=== PATIENT | male | born 1970 | race African-American/Black ===

== ENCOUNTER 2024-09-17 13:44 | Inpatient (IN) | payer OTHER ==
[~2024-09-17 13:44] MED LIST: Iopamidol-370 76% 500 ML MDV (1 ML CHARGE) ONE
[2024-09-17] MEDS ORDERED: Aspirin 325 MG TAB ONE (14:06)
[2024-09-17 14:19] LABS: #Basophils 0.06 10x3/uL (0.0-0.2); %Eosinophils 5.8 % (0.0-10.0); %Lymphocytes 22.4 % (21.0-51.0); %Monocytes 9.5 % (0.0-10.0); Hematocrit 34.7 % (42.0-52.0); Hemoglobin 11.4 g/dL (14.0-18.0); Mean Corpuscular HGB CONC 32.9 g/dL (32.0-36.0); Mean Corpuscular Hemoglobin 29.4 pg (27.0-31.0); Mean Corpuscular Volume 89.4 fL (78.0-98.0); Mean Platelet Volume 11.1 fL (7.4-10.4); Platelet Count 160 10x3/uL (130-400); RBC Distribution Width 13.6 % (11.5-14.5); Red Blood Cell (RBC) Count 3.88 mill/uL (4.70-6.10)
[2024-09-17 14:31] LABS: Prothrombin Time 13.3 sec (12.0-14.7)
[2024-09-17 14:32] LABS: PTT 29.2 sec (22.9-36.1)
[2024-09-17 14:38] LABS: ALT (SGPT) 18 U/L (Less than 45); AST (SGOT) 346 U/L (11-34); Albumin 3.5 g/dL (3.1-4.5); Alkaline Phosphatase 67 U/L (40-110); Anion Gap 14 mmol/L (10-20); BUN (Urea Nitrogen) 15 mg/dL (8.4-25.7); Bilirubin, Total 0.3 mg/dL (0.3-1.2); Calc. Creatinine Clearance 0 mL/min (70-130); Calcium 8.5 mg/dL (7.8-10.44); Carbon Dioxide 27 mmol/L (22-29); Chloride 101 mmol/L (98-107); Estimated GFR 68; Globulin 3.7 g/dL (2.4-3.5); Glucose 275 mg/dL (70-105); Potassium 3.7 mmol/L (3.5-5.1); Protein, Total 7.2 g/dL (6.0-8.3); Sodium 138 mmol/L (136-145)
[2024-09-17 14:41] LABS: Troponin I 0.012 ng/mL (< 0.028)
[2024-09-17] MEDS ORDERED: Ondansetron ODT 4 MG TAB PO PRN (20:09)
[2024-09-17] MEDS ORDERED: Glucagon 1 MG/ML KIT IM PRN (20:09)
[2024-09-17] MEDS ORDERED: Dextrose 50% Abboject 50 ML SYRINGE SLOW IVP PRN (20:09)
[2024-09-17] MEDS ORDERED: Dextrose 5% in Water 1,000 ML IV PRN (20:09)
[2024-09-17] MEDS ORDERED: Famotidine 20 MG TAB PO SCH (21:00)
[2024-09-17] MEDS: Metoprolol Tartrate 100 MG TAB PO SCH (22:12)
[2024-09-17] MEDS: Famotidine 20 MG TAB PO SCH (22:12)
[2024-09-17] MEDS: Insulin Glargine 30 UNITS/0.3 ML VIAL SC SCH (22:12)
[2024-09-17] MEDS: Atorvastatin Calcium 40 MG TAB PO SCH (22:13)
[2024-09-18 01:12] VITALS: BMI 36.5
[2024-09-18 04:20] LABS: #Basophils 0.06 10x3/uL (0.0-0.2); %Basophils 0.9 % (0.0-1.0); %Eosinophils 5.7 % (0.0-10.0); %Lymphocytes 27.9 % (21.0-51.0); %Monocytes 8.4 % (0.0-10.0); Hematocrit 34.3 % (42.0-52.0); Hemoglobin 11.1 g/dL (14.0-18.0); Mean Corpuscular HGB CONC 32.4 g/dL (32.0-36.0); Mean Corpuscular Hemoglobin 29.1 pg (27.0-31.0); Mean Corpuscular Volume 89.8 fL (78.0-98.0); Platelet Count 161 10x3/uL (130-400); RBC Distribution Width 13.3 % (11.5-14.5); Red Blood Cell (RBC) Count 3.82 mill/uL (4.70-6.10)
[2024-09-18 04:31] LABS: Hemoglobin A1c 6.8 % (4.0-6.0)
[2024-09-18 04:40] LABS: ALT (SGPT) 17 U/L (Less than 45); AST (SGOT) 349 U/L (11-34); Albumin 3.5 g/dL (3.1-4.5); Alkaline Phosphatase 62 U/L (40-110); Anion Gap 13 mmol/L (10-20); BUN (Urea Nitrogen) 11 mg/dL (8.4-25.7); Bilirubin, Total 0.5 mg/dL (0.3-1.2); Calc. Creatinine Clearance 110 mL/min (70-130); Calcium 8.7 mg/dL (7.8-10.44); Carbon Dioxide 30 mmol/L (22-29); Chloride 102 mmol/L (98-107); Estimated GFR 84; Globulin 3.8 g/dL (2.4-3.5); Glucose 97 mg/dL (70-105); Potassium 2.9 mmol/L (3.5-5.1); Protein, Total 7.3 g/dL (6.0-8.3); Sodium 142 mmol/L (136-145)
[2024-09-18 04:42] LABS: Cardiac Risk 3.5 (Less than 4.5)
[2024-09-18] MEDS ORDERED: Potassium Chloride 20 MEQ in Premix 1 BAG IVPB SCH (08:00)
[2024-09-18] MEDS: Empagliflozin 25 MG TAB PO SCH (08:54)
[2024-09-18] MEDS: Escitalopram Oxalate 20 mg Tablet PO SCH (08:54)
[2024-09-18] MEDS: Aspirin 81 mg Enteric Coated Tablet PO SCH (08:54)
[2024-09-18] MEDS: Potassium Chloride 20 MEQ TAB PO SCH (09:26)
[2024-09-18] MEDS: Hydrochlorothiazide 25 MG TAB PO SCH (09:26)
[2024-09-18] MEDS: NIFEdipine XL 60 MG ER.TAB PO SCH (09:26)
[2024-09-18] MEDS: Insulin Lispro 100 UNIT/ML 10 ML VIAL SC PRN (13:15)
[2024-09-18] MEDS: Clopidogrel Bisulfate 300 MG TAB PO SCH (13:15)
[2024-09-18 15:42] LABS: Troponin I Less than 0.010 ng/mL (< 0.028)
[2024-09-18] MEDS: Meclizine HCl 25 MG TAB PO PRN (21:51)
[2024-09-19 04:03] LABS: #Basophils 0.04 10x3/uL (0.0-0.2); %Basophils 0.6 % (0.0-1.0); %Eosinophils 4.9 % (0.0-10.0); %Lymphocytes 31.4 % (21.0-51.0); %Monocytes 9.5 % (0.0-10.0); %Neutrophils 53.5 % (42.0-75.0); Hematocrit 35.7 % (42.0-52.0); Hemoglobin 11.5 g/dL (14.0-18.0); Mean Corpuscular HGB CONC 32.2 g/dL (32.0-36.0); Mean Corpuscular Hemoglobin 28.5 pg (27.0-31.0); Mean Corpuscular Volume 88.6 fL (78.0-98.0); Mean Platelet Volume 11.4 fL (7.4-10.4); Platelet Count 166 10x3/uL (130-400); RBC Distribution Width 13.4 % (11.5-14.5); Red Blood Cell (RBC) Count 4.03 mill/uL (4.70-6.10)
[2024-09-19 04:50] LABS: ALT (SGPT) 17 U/L (Less than 45); AST (SGOT) 349 U/L (11-34); Albumin 3.6 g/dL (3.1-4.5); Alkaline Phosphatase 64 U/L (40-110); Anion Gap 12 mmol/L (10-20); BUN (Urea Nitrogen) 16 mg/dL (8.4-25.7); Bilirubin, Total 0.5 mg/dL (0.3-1.2); Calc. Creatinine Clearance 77 mL/min (70-130); Calcium 9.1 mg/dL (7.8-10.44); Carbon Dioxide 32 mmol/L (22-29); Chloride 101 mmol/L (98-107); Estimated GFR 54; Globulin 3.9 g/dL (2.4-3.5); Glucose 92 mg/dL (70-105); Potassium 3.1 mmol/L (3.5-5.1); Protein, Total 7.5 g/dL (6.0-8.3); Sodium 142 mmol/L (136-145)
[2024-09-19] MEDS: Clopidogrel Bisulfate 75 MG TAB PO SCH (09:21)
[2024-09-19] MEDS: Potassium Bicarbonate/Cit Ac 20 MEQ TAB PO SCH (09:21)
[2024-09-19] MEDS: Potassium Chloride 20 MEQ TAB PO ONE (09:26)
[2024-09-19] MEDS: Potassium Chloride 20 MEQ TAB PO SCH (12:15)
[2024-09-20 04:32] LABS: #Basophils 0.07 10x3/uL (0.0-0.2); %Basophils 0.8 % (0.0-1.0); %Eosinophils 4.4 % (0.0-10.0); %Lymphocytes 23.9 % (21.0-51.0); %Monocytes 9.9 % (0.0-10.0); %Neutrophils 60.9 % (42.0-75.0); Hematocrit 36.4 % (42.0-52.0); Hemoglobin 11.8 g/dL (14.0-18.0); Mean Corpuscular HGB CONC 32.4 g/dL (32.0-36.0); Mean Corpuscular Hemoglobin 29.2 pg (27.0-31.0); Mean Corpuscular Volume 90.1 fL (78.0-98.0); Mean Platelet Volume 10.8 fL (7.4-10.4); Platelet Count 168 10x3/uL (130-400); RBC Distribution Width 13.5 % (11.5-14.5); Red Blood Cell (RBC) Count 4.04 mill/uL (4.70-6.10)
[2024-09-20 04:58] LABS: ALT (SGPT) 17 U/L (Less than 45); AST (SGOT) 338 U/L (11-34); Albumin 3.6 g/dL (3.1-4.5); Alkaline Phosphatase 60 U/L (40-110); Anion Gap 13 mmol/L (10-20); BUN (Urea Nitrogen) 21 mg/dL (8.4-25.7); Bilirubin, Total 0.6 mg/dL (0.3-1.2); Calc. Creatinine Clearance 79 mL/min (70-130); Carbon Dioxide 31 mmol/L (22-29); Chloride 100 mmol/L (98-107); Estimated GFR 57; Globulin 4.2 g/dL (2.4-3.5); Glucose 74 mg/dL (70-105); Potassium 3.1 mmol/L (3.5-5.1); Protein, Total 7.8 g/dL (6.0-8.3); Sodium 141 mmol/L (136-145)
[2024-09-20] MEDS: Potassium Chloride 20 MEQ TAB PO SCH (09:23)
[2024-09-20] MEDS: NIFEdipine XL 60 MG ER.TAB PO SCH (09:23)
[2024-09-20 12:22] VITALS: BP 148/93; TEMP 98.1
[2024-09-20] MEDS ORDERED: Insulin Glargine 30 UNITS/0.3 ML VIAL SC SCH (21:00)
== END 2024-09-20 16:06 | disposition home or self-care (01) | DRG 69 ==
LOC: ERS 13:44 → 2SE 17:03 → OBSVTOIN 09-18 13:45
PROVIDERS: ADMIT Family Medicine; ATTEND Family Medicine
DX: G45.9 Transient cerebral ischemic attack, unspecified (principal); N17.9 Acute kidney failure, unspecified; I11.0 Hypertensive heart disease with heart failure; E78.5 Hyperlipidemia, unspecified; I50.9 Heart failure, unspecified; F17.210 Nicotine dependence, cigarettes, uncomplicated; I66.02 Occlusion and stenosis of left middle cerebral artery; F41.9 Anxiety disorder, unspecified; F43.10 Post-traumatic stress disorder, unspecified; E87.6 Hypokalemia; E11.65 Type 2 diabetes mellitus with hyperglycemia; R74.01 Elevation of levels of liver transaminase levels; Z79.899 Other long term (current) drug therapy; Z79.84 Long term (current) use of oral hypoglycemic drugs; Z79.4 Long term (current) use of insulin; Z79.82 Long term (current) use of aspirin
CPT/HCPCS: 36415; 36416; 70450; 70496; 70498; 70551; 71045; 80053; 80061; 83036; 83735; 84443; 84484; 85025; 85610; 85730; 93005; 93306; 94760; J1815; Q9967